=== PATIENT | male | born 1950 | race Caucasian/White ===

== ENCOUNTER 2018-04-15 06:27 | Emergency (ER) | payer OTHER ==
[~2018-04-15] VITALS: Ht 175.3 cm; Wt 104.3 kg
[2018-04-15 07:21] LABS: ABSOLUTE BASOPHIL COUNT 0 /CUMM (0.0-0.2); ABSOLUTE EOSINOPHIL COUNT 0.1 /CUMM (0.0-0.7); ABSOLUTE GRANULOCYTE CT 3.9 /CUMM (1.4-6.5); ABSOLUTE LYMPH COUNT 1.6 /CUMM (1.2-3.4); ABSOLUTE MONOCYTE COUNT 0.4 /CUMM (0.10-0.60); BASOPHIL % 0.4 % (0.0-2.0); EOSINOPHIL % 1.3 % (0-5); GRANULOCYTE % 64.8 % (42.2-75.2); HEMATOCRIT 41.9 % (42-52); MEAN CORPUSCULAR HGB 27.8 PG (27.0-31.0); MEAN CORPUSCULAR HGB CONC 33.4 G/DL (33.0-37.0); MEAN CORPUSCULAR VOLUME 83.2 FL (80.0-94.0); MEAN PLATELET VOLUME 7.9 FL (7.4-10.4); PLATELET COUNT 204 /CUMM (130-400); RBC DISTRIBUTION WIDTH 13.4 % (11.5-14.5); RED BLOOD CELL CT 5.03 /CUMM (4.70-6.10)
--- NOTE | 2018-04-15 07:32 | ED GENERAL ADULT ---
History of Present Illness General Chief Complaint: Abdominal Pain/Flank Pain Stated Complaint: ABD/FLANK PAIN [id number] HX POLYPS IN COLON Source: patient Exam Limitations: no limitations Vital Signs & Intake/Output Vital Signs & Intake/Output Vital Signs Date Time Temp Pulse Resp B/P B/P Pulse O2 O2 Flow FiO2 Mean Ox Delivery Rate 04/15 1114 97.0 80 16 169/89 100 Room Air 04/15 1021 97.0 78 18 125/75 96 Room Air 04/15 0858 98.0 80 20 138/86 100 Room Air 04/15 0757 97.0 85 20 129/60 100 Room Air 04/15 0752 98 Room Air Room Air 04/15 0646 73 16 147/81 96 Room Air Allergies Coded Allergies: No Known Allergies (04/15/18) Reconcile Medications Ciprofloxacin HCl (Cipro) 250 MG TABLET 1 TAB PO BID UTI Tamsulosin HCl (Flomax) 0.4 MG CAP.ER.24H 1 CAP PO DAILY KIDNEY STONE Triage Note: PT REPORTS LLQ AND BILATERAL LOWER BACK PAIN X 3/4 WEEKS. PT HAS PMHX OF RENAL CALCULI'S. DENIED DIFF URINATING. Triage Nurses Notes Reviewed? yes Onset: Abrupt Duration: day(s): Timing: recent history HPI: 04/15/18 7:37 AM 67-year-old male presents to the emergency department complaining of right-sided flank pain and left lower quadrant abdominal pain. The patient states right- sided flank pain and left lower quadrant abdominal pain. The patient states he has a history of kidney stones in the past and also diverticulosis. Now he presents with right-sided flank pain and left lower quadrant abdominal pain. He says when he moves the pain is worse. He denies fever or vomiting. Past History Travel History Traveled to [place] past 21 day No Medical History Any Pertinent Medical History? see below for history Gastrointestinal: DIVERTICULOSIS AND ITIS POLYPS Renal: RENAL CALCULI Surgical History Surgical History: non-contributory Psychosocial History Who do you live with Spouse Services at Home None What is your primary language Honduran Tobacco Use: Never used Family History Hx Contributory? No Review of Systems Review of Systems Constitutional: Denies: fever. EENTM: Reports: no symptoms. Respiratory: Denies: short of breath. Cardiovascular: Denies: chest pain. GI: Reports: abdominal pain, constipation, nausea. Genitourinary: Reports: no symptoms. Musculoskeletal: Reports: no symptoms. Skin: Denies: rash. Neurological/Psychological: Reports: no symptoms. Hematologic/Endocrine: Reports: no symptoms. Immunologic/Allergic: Reports: no symptoms. Physical Exam Physical Exam General Appearance: well developed/nourished, alert, awake, anxious Head: atraumatic, normal appearance Eyes: Bilateral: normal appearance, PERRL, EOMI. Ears, Nose, Throat: normal pharynx, normal ENT inspection Neck: normal inspection, supple, full range of motion Respiratory: normal breath sounds, chest non-tender, no respiratory distress Cardiovascular: regular rate/rhythm Peripheral Pulses: 4+ radial (R), 4+ radial (L) Gastrointestinal: soft, non-tender Back: CVA tenderness (L) Extremities: normal inspection, normal range of motion Neurologic/Psych: no motor/sensory deficits, awake, alert, oriented x 3 Skin: intact, normal color, warm/dry Core Measures ACS in differential dx? No CVA/TIA Diagnosis: No Sepsis Present: No Sepsis Focused Exam Completed? No Progress Differential Diagnoses I considered the following diagnoses in my evaluation of the patient: [ Diverticulitis, renal colic, gastroenteritis,Diverticulitis, renal colic, gastroenteritis, aortic dissection, pyelonephritis,] Plan of Care: Orders Procedure Date/time Status URINALYSIS 04/15 0854 Complete TROPONIN LEVEL 04/15 0640 Complete LIPASE 04/15 0640 Complete HEPATIC FUNCTION PANEL 04/15 0640 Complete CBC WITHOUT DIFFERENTIAL 04/15 0640 Complete BASIC METABOLIC PANEL 04/15 0640 Complete AMYLASE 04/15 0640 Complete EKG 04/15 0640 Active Laboratory Tests 04/15/18 0920: Urinalysis LIGHT H, Urine Color YEL, Urine Clarity CLEAR, Urine pH 7.0, Ur Specific [place] 1.015, Urine Protein NEG, Urine Ketones NEG, Urine Nitrite NEG, Urine Bilirubin NEG, Urine Urobilinogen 0.2, Ur Leukocyte Esterase TRACE H, Ur Microscopic SEDIMENT EXAMINED, Urine RBC 1-3, Urine WBC 5-10 H, Urine Bacteria FEW H, Urine Mucus FEW, Urine Hemoglobin NEG, Urine Glucose NEG 04/15/18 0705: Anion Gap 8, Estimated GFR > 60, BUN/Creatinine Ratio 15.7, Glucose 90, Calcium 8.9, Total Bilirubin 0.6, Direct Bilirubin 0.1, AST 20, ALT 28, Alkaline Phosphatase 93, Troponin I < 0.01, Total Protein 6.2 L, Albumin 3.5, Amylase 49 , Lipase 72, CBC w Diff NO MAN DIFF REQ, RBC 5.03, MCV 83.2, MCH 27.8, MCHC 33.4 , RDW 13.4, MPV 7.9, Gran % 64.8, Lymphocytes % 27.4, Monocytes % 6.1, Eosinophils % 1.3, Basophils % 0.4, Absolute Granulocytes 3.9, Absolute Lymphocytes 1.6, Absolute Monocytes 0.4, Absolute Eosinophils 0.1, Absolute Basophils 0 Initial ED EKG: NSR Prior EKG: unchanged Departure Departure Disposition: HOME OR SELF CARE Condition: Stable Clinical Impression Primary Impression: Abdominal pain Secondary Impressions: Ureterolithiasis Referrals: Anson DIXON,Issac Marte (PCP/Family) Departure Forms: Customer Survey General Discharge Information Prescriptions: Current Visit Scripts Ciprofloxacin HCl (Cipro) 1 TAB PO BID #14 TAB Tamsulosin HCl (Flomax) 1 CAP PO DAILY #[address] scan results below IMPRESSION: 1. There is a 6 mm calculus within the proximal left ureter associated with moderate upstream hydronephrosis. 2. Small fat-containing direct inguinal hernia on the left. 3. Diverticulosis coli. No evidence of diverticulitis. DICTATED BY: TITO ELMORE MD DATE/TIME DICTATED:04/15/18836 SENIOR ELECTRICAL ESTIMATOR:LIZABETH DATE/TIME TRANSCRIBED:04/15/18836 CONFIDENTIAL, DO NOT COPY WITHOUT APPROPRIATE AUTHORIZATION. <Electronically signed in Other Vendor System> SIGNED BY: TITO ELMORE MD 04/15/18 0851 The patient's pain is well managed. We'll treat with Cipro and Flomax. He will take ibuprofen as needed for pain he will follow-up with Dr. Torres whom I discussed the patient's CAT scan results and clinical plan with. The patient states that the flank pain is actually predominantly on the left. Critical Care Note Critical Care Note Critical Care Time: non-applicable
--- NOTE | 2018-04-15 08:51 | CT SCAN REPORT ---
EXAMINATION: CT ABDOMEN AND PELVIS WITHOUT CONTRAST CLINICAL INFORMATION: Left lower quadrant pain COMPARISON: 06/28/2008 TECHNIQUE: Multidetector volumetric imaging was performed from the superior aspect of the liver through the pubic symphysis. Sagittal and coronal reformatted images were obtained on the technologist's workstation. DLP: 844 mGy-cm FINDINGS: LUNG BASES: The visualized lung bases are unremarkable. LIVER, GALLBLADDER, AND BILIARY TREE: The liver is normal in size, shape, and attenuation. No focal hepatic lesion or biliary ductal dilatation is present. The gallbladder is unremarkable with no evidence of radiopaque gallstones, gallbladder wall thickening, or obvious pericholecystic inflammatory changes. PANCREAS: Unremarkable. SPLEEN: Unremarkable. ADRENAL GLANDS: Unremarkable. KIDNEYS AND URETERS: There is a 6 mm calculus within the proximal left ureter, just distal to the ureteropelvic junction approximately 1.4 cm. There is moderate upstream hydronephrosis. No additional urinary calculi. BLADDER: Unremarkable. GASTROINTESTINAL TRACT: Scattered colonic diverticula. No evidence of diverticulitis. Normal appendix. Stomach and small bowel unremarkable. ABDOMINAL WALL: Small fat-containing direct inguinal hernia on the left. LYMPH NODES: Normal. VASCULAR: Unremarkable. PELVIC VISCERA: Unremarkable. OSSEOUS STRUCTURES: Unremarkable. IMPRESSION: 1. There is a 6 mm calculus within the proximal left ureter associated with moderate upstream hydronephrosis. 2. Small fat-containing direct inguinal hernia on the left. 3. Diverticulosis coli. No evidence of diverticulitis.
[2018-04-15] MEDS ORDERED: FLOMAX0.4 M1 PO (11:10)
[2018-04-15] MEDS ORDERED: CIPRO250 M1 PO (11:10)
[2018-04-15 11:14] VITALS: BP 169/89
== END 2018-04-15 11:36 ==
LOC: ERH 06:27
PROVIDERS: Pediatrics
DX: N20.1 Calculus of ureter (principal); R10.32 Left lower quadrant pain
CPT/HCPCS: 74176; 81001; 93005; 93010